=== PATIENT | male | born 1955 | race Caucasian/White ===

== ENCOUNTER 2017-10-11 19:44 | Emergency (ER) | payer OTHER ==
[2017-10-11] MEDS ORDERED: Albuterol/Ipratropium 3.0-0.5 MG/3 ML Neb Soln NEB ONE (19:57)
--- NOTE | 2017-10-11 20:08 | EDM.PDOC ---
ED HPI GENERAL MEDICAL PROBLEM - General Stated Complaint: SICK/COLD Time Seen by Provider: 10/11/17 20:00 Source of Information: Reports: Patient History Limitations: Reports: No Limitations - History of Present Illness INITIAL COMMENTS - FREE TEXT/NARRATIVE: History of present illness: 62-year-old male presenting with complaints of chest cold. Patient indicates that when he lays back that he feels that his lungs filled with fluid and is afraid he might have a pneumonia and would like to be evaluated and treated. Patient denies history of pneumonia denies history of COPD. Review of systems: As per history of present illness and below otherwise all systems reviewed and negative. Past medical history: As per history of present illness and as reviewed below otherwise noncontributory. Surgical history: As per history of present illness and as reviewed below otherwise noncontributory. Social history: No reported history of drug or alcohol abuse. Family history: As per history of present illness and as reviewed below otherwise noncontributory. Physical exam: HEENT: Atraumatic, normocephalic, pupils reactive, negative for conjunctival pallor or scleral icterus, mucous membranes moist with oral pharyngeal erythema without white patchy exudate neck supple, nontender, trachea midline. Lungs: Poor air movement with minimal diaphragmatic excursion noted shallow nonproductive cough, chest nontender. Heart: S1S2, regular, negative for clicks, rubs, or JVD. Abdomen: Soft, nondistended, nontender. Negative for masses or hepatosplenomegaly. Negative for costovertebral tenderness. Pelvis: Stable nontender. Genitourinary: Deferred. Rectal: Deferred. Extremities: Atraumatic, negative for cords or calf pain. Neurovascular unremarkable. Neuro: Awake, alert, oriented. Cranial nerves II through XII unremarkable. Cerebellum unremarkable. Motor and sensory unremarkable throughout. Exam nonfocal. Diagnostics: [Influenza AB, chest x-ray] Therapeutics: [Duo neb] Impression: [#1 pharyngitis #2 cough] Plan: [Antibodies, steroids, inhaler, cough syrup] Definitive disposition and diagnosis as appropriate pending reevaluation and review of above. Generalized Pain Score (Numeric/FACES): 7 - Related Data Allergies Allergy/AdvReac Type Severity Reaction Status Date / Time No Known Allergies Allergy Verified 10/11/17 20:31 Home Meds: Home Meds Albuterol Sulfate [Proair Hfa] 2 puff IH Q6HR #1 hfa.aer.ad 10/11/17 [Rx] Amoxicillin [IMW: Amoxicillin] 500 mg PO .THREE TIMES DAILY #30 cap 10/11/17 [Rx ] Inhaler, Assist Devices [Space Chamber Plus] 1 each ASDIRECTED #1 spacer [Rx] Rosuvastatin [Crestor] 10 mg PO ACBREAKFAST 10/11/17 [History] methylPREDNISolone [Medrol] 4 mg PO DAILY #21 tab.ds.pk 10/11/17 [Rx] ED ROS GENERAL - Review of Systems Review Of Systems: See Below (See history of present illness) ED EXAM, GENERAL - Physical Exam Exam: See Below (History of present illness) Course - Vital Signs Last Recorded V/S: Last Vital Signs Temp 38.3 C H 10/11/17 20:33 Pulse 109 H 10/11/17 20:33 Resp 20 10/11/17 20:33 BP 149/78 H 10/11/17 20:33 Pulse Ox 94 L 10/11/17 20:33 - Orders/Labs/Meds Orders: Active Orders 24 hr Category Date Time Status RT Aerosol Therapy [RC] ASDIRECTED Care 10/11/17 19:57 Active CXR [Chest 2V] [CR] Stat Exams 10/11/17 19:56 Taken Meds: Medications Discontinued Medications Generic Name Dose Route Start Last Admin Trade Name Freq PRN Reason Stop Dose Admin Albuterol/Ipratropium 3 ml 10/11/17 19:57 10/11/17 20:19 Duoneb 3.0-0.5 Mg/3 Ml NEB 10/11/17 19:58 3 ml ONETIME ONE Administration Departure - Departure Time of Disposition: 21:32 Disposition: Home, Self-Care 01 Condition: Good Clinical Impression: Cough, Pharyngitis - Discharge Information Prescriptions: Albuterol Sulfate [Proair Hfa] 2 puff IH Q6HR #1 hfa.aer.ad Amoxicillin [IMW: Amoxicillin] 500 mg PO .THREE TIMES DAILY #30 cap Inhaler, Assist Devices [Space Chamber Plus] 1 each ASDIRECTED #1 spacer methylPREDNISolone [Medrol] 4 mg PO DAILY #21 tab.ds.pk Referrals: Richie Chavez MD [Primary Care Provider] - Additional Instructions: The following information is given to patients seen in the emergency department who are being discharged to home. This information is to outline your options for follow-up care. We provide all patients seen in our emergency department with a follow-up referral. The need for follow-up, as well as the timing and circumstances, are variable depending upon the specifics of your emergency department visit. If you don't have a primary care physician on staff, we will provide you with a referral. We always advise you to contact your personal physician following an emergency department visit to inform them of the circumstance of the visit and for follow-up with them and/or the need for any referrals to a consulting specialist. The emergency department will also refer you to a specialist when appropriate. This referral assures that you have the opportunity for follow-up care with a specialist. All of these measure are taken in an effort to provide you with optimal care, which includes your follow-up. Under all circumstances we always encourage you to contact your private physician who remains a resource for coordinating your care. When calling for follow-up care, please make the office aware that this follow-up is from your recent emergency room visit. If for any reason you are refused follow-up, please contact the [facility] Emergency Department at and asked to speak to the emergency department charge nurse. Take medication as directed Follow-up with primary care provider in 3-5 days Return to ED as needed as discussed - My Orders Last 24 Hours: My Active Orders 10/11/17 19:56 CXR [Chest 2V] [CR] Stat 10/11/17 19:57 RT Aerosol Therapy [RC] ASDIRECTED - Assessment/Plan Last 24 Hours: My Active Orders 10/11/17 19:56 CXR [Chest 2V] [CR] Stat 10/11/17 19:57 RT Aerosol Therapy [RC] ASDIRECTED
--- NOTE | 2017-10-14 18:53 | CR ---
EXAM DATE: 10/11/17 PATIENT'S AGE: 62 Patient: [facility] Facility: [place], [place] Site . Site : [id number] Study: XRay Chest [id number] 9:17:34 PM Ordering Physician: Doctor Kilgore Final Report: INDICATION: Cough. Technique: PA and lateral chest x-ray. Findings: Probable hiatal hernia of moderate size. Heart size upper limits of normal. Mediastinum mildly prominent. Mild opacity in the right lung base likely related to atelectasis. Increased opacity in the left lung base medially may be related to the lateral aspect of the hiatal hernia. Chest otherwise unremarkable. Dictated by Gamal Escobedo MD @ Oct 11 2017 9:39PM (Electronic Signature) Report Signed by Proxy. NIRMAL
== END 2017-10-11 21:52 | disposition home or self-care (01) ==
LOC: MW.ED 19:44
DX: J02.9 Acute pharyngitis, unspecified (principal); Z79.899 Other long term (current) drug therapy
CPT/HCPCS: 71020; 71020-26; 87804; 94640; 99283; 99284

== ENCOUNTER 2018-02-17 09:49 | Day surgery (SDC) | payer BC ==
[~2018-02-17 09:49] MED LIST: Lactated Ringers 1,000 ML IV SCH; Sodium Chloride 0.9% 10 ML Syringe FLUSH PRN; Sodium Chloride 0.9% 2.5 ML Syringe FLUSH PRN
[2018-02-17] MEDS ORDERED: Lidocaine 2% 5 ML SDV ONE (09:59)
[2018-02-17] MEDS ORDERED: fentaNYL 100 MCG/2 ML SDV ONE (09:59)
[2018-02-17] MEDS ORDERED: Propofol 200 MG/20 ML SDV ONE (09:59)
--- NOTE | 2018-02-17 10:47 | PCM.PREANE ---
Preanesthetic Assessment - Anesthesia/Transfusion/Family Hx Anesthesia History: Prior Anesthesia Without Reaction Family History of Anesthesia Reaction: No Transfusion History: No Prior Transfusion(s) Intubation History: Unknown - Review of Systems General: No Symptoms Pulmonary: No Symptoms Cardiovascular: No Symptoms Gastrointestinal: No Symptoms, Other (hemoccult positive) Neurological: No Symptoms Other: Reports: None - Physical Assessment Height: 1.8 m Weight: 97.522 kg ASA Class: 2 Mental Status: Alert & Oriented x3 Airway Class: Mallampati = 2 Dentition: Reports: Normal Dentition, [place](s) (x8 upper) Thyro-Mental Finger Breadths: 3 Mouth Opening Finger Breadths: 3 ROM/Head Extension: Full Lungs: Clear to Auscultation, Normal Respiratory Effort Cardiovascular: Regular Rate, Regular Rhythm - Allergies Allergies/Adverse Reactions: Allergies Allergy/AdvReac Type Severity Reaction Status Date / Time No Known Allergies Allergy Verified 02/12/18 09:06 - Blood Blood Available: No - Anesthesia Plan Pre-Op Medication Ordered: None - Acknowledgements Anesthesia Type Planned: MAC Pt an Appropriate Candidate for the Planned Anesthesia: Yes Alternatives and Risks of Anesthesia Discussed w Pt/Guardian: Yes Pt/Guardian Understands and Agrees with Anesthesia Plan: Yes PreAnesthesia Questionnaire Cardiovascular History: Reports: High Cholesterol, Hypertension Gastrointestinal History: Reports: None, Other (See Below) (h/o GERD) Genitourinary History: Reports: BPH Endocrine/Metabolic History: Reports: Obesity/BMI 30+ - Past Surgical History Head Surgeries/Procedures: Reports: None GI Surgical History: Reports: Colonoscopy (10 years ago- normal) Male Surgical History: Reports: Vasectomy - SUBSTANCE USE Smoking Status *Q: Former Smoker Second Hand Smoke Exposure: No Recreational Drug Use History: No - HOME MEDS Home Medications: Home Meds Ramipril [Altace] 10 mg PO DAILY 10/11/17 [History] Rosuvastatin [Crestor] 20 mg PO ACBREAKFAST 10/11/17 [History] - CURRENT (IN HOUSE) MEDS Current Meds: Current Medications Lactated Ringer's (Ringers, Lactated) 1,000 mls @ 125 mls/hr IV ASDIRECTED ZACHARY Sodium Chloride (Saline Flush) 10 ml FLUSH ASDIRECTED PRN PRN Reason: Keep Vein Open Sodium Chloride (Saline Flush) 2.5 ml FLUSH ASDIRECTED PRN PRN Reason: Keep Vein Open Sodium Chloride (Saline Flush) 10 ml FLUSH ASDIRECTED PRN PRN Reason: Keep Vein Open Sodium Chloride (Saline Flush) 2.5 ml FLUSH ASDIRECTED PRN PRN Reason: Keep Vein Open Discontinued Medications Fentanyl (Sublimaze) Confirm Administered Dose 100 mcg .ROUTE .STK-MED ONE Stop: 02/17/18 10:00 Lidocaine (Xylocaine-Mpf 2%) Confirm Administered Dose 5 ml .ROUTE .STK-MED ONE Stop: 02/17/18 10:00 Propofol (Diprivan 20 Ml) Confirm Administered Dose 400 mg .ROUTE .STK-MED ONE Stop: 02/17/18 10:00
--- NOTE | 2018-02-17 11:30 | PCM.OPNOTE ---
- General Post-Op/Procedure Note Date of Surgery/Procedure: 02/17/18 Operative Procedure(s): Diagnostic colonoscopy Findings: Sigmoid colon polyps x 2 Pre Op Diagnosis: Positive fecal occult blood test Post-Op Diagnosis: Sigmoid colon polyps x 2 Anesthesia Technique: MAC Primary Surgeon: Iliana Golden Condition: Good
--- NOTE | 2018-02-17 11:37 | PCM.POSTAN ---
POST ANESTHESIA ASSESSMENT - MENTAL STATUS Mental Status: Alert, Oriented - RESPIRATORY Respiratory Status: Respiratory Rate WNL - CARDIOVASCULAR CV Status: Pulse Rate WNL, Blood Pressure Stable - GASTROINTESTINAL GI Status: No Symptoms - PAIN Pain Score: 0 - POST OP HYDRATION Hydration Status: Adequate & Stable - OBSERVATIONS Free Text/Narrative:: no anesthesia problems
--- NOTE | 2018-02-17 12:01 | OR ---
SURGEON: ASA HICKMAN MD DATE OF PROCEDURE: 02/17/2018 PREOPERATIVE DIAGNOSIS: Positive fecal occult blood test. POSTOPERATIVE DIAGNOSIS: Sigmoid colon polyps x2. PROCEDURE PERFORMED: Diagnostic colonoscopy. ANESTHESIA: MAC. INSTRUMENT USED: Olympus colonoscope. EXTENT OF EXAM: To the cecum. PREPARATION: Good. LIMITATIONS: None. INDICATION FOR EXAMINATION: The patient is a 62-year-old male who recently had a screening fecal occult blood test that came back positive. A decision was made to proceed with diagnostic colonoscopy. We discussed the procedure, expected perioperative course, and risks including bleeding, infection, damage to surrounding structures, including perforation. The patient verbalized understanding and wishes to proceed. PROCEDURE IN DETAIL: The patient was brought to the endoscopy suite and placed in a left lateral decubitus position. A time-out was completed verifying the patient's name, age, date of , allergies, and procedure to be performed. Monitored anesthesia care was induced and continuous oxygen was provided via nasal cannula throughout the procedure. After adequate sedation was achieved, a digital rectal exam was performed. This exam was significant for some mild hemorrhoidal disease. A well-lubricated colonoscope was then inserted into the rectum and advanced under direct visualization to the level of cecum. The cecum was identified by both visual and anatomic landmarks. Photograph was taken of the cecal cap, however, I was unable to retroflex the scope within the cecum safely. The scope was then fully withdrawn while examining the color, texture, anatomy, and integrity of the mucosa from the cecum to the anal canal. The ileocecal valve appeared normal with no evidence of any inflammation. In the proximal sigmoid colon, a 1 to 2 mm sessile polyp was noted. This was removed using a cold biopsy forceps. At 60 cm, a 4 to 5 mm pedunculated polyp was noted. This was removed in piecemeal fashion using a cold biopsy forceps. Given its location, the area was then marked with ink. This ink was injected submucosally to allow for identification of the site of resection in the future. At the end of this procedure, the area appeared hemostatic. The remainder of the colonic mucosa appeared normal. The scope was brought into the rectum and retroflexed to allow visualization of the anal canal opening. This appeared normal and a photograph was taken. The scope was then straightened out and fully withdrawn. The cecum to anus time was greater than 15 minutes. The patient tolerated the procedure well and taken back in stable condition. ENDOSCOPIC DIAGNOSIS: Sigmoid colon polyps x2. RECOMMENDATIONS: Follow up in clinic in 2 weeks. ELIO BERMAN /[id number]
== END 2018-02-17 11:51 | disposition home or self-care (01) ==
LOC: MW.SDS 09:49
PROVIDERS: ATTEND Surgery
DX: D12.5 Benign neoplasm of sigmoid colon (principal); K63.5 Polyp of colon; I10 Essential (primary) hypertension; E78.00 Pure hypercholesterolemia, unspecified; K40.90 Unilateral inguinal hernia, without obstruction or gangrene, not specified as recurrent; M21.40 Flat foot [pes planus] (acquired), unspecified foot; N40.0 Benign prostatic hyperplasia without lower urinary tract symptoms; E66.9 Obesity, unspecified; Z68.29 Body mass index [BMI] 29.0-29.9, adult; Z79.899 Other long term (current) drug therapy; Z98.52 Vasectomy status; Z98.890 Other specified postprocedural states; Z87.891 Personal history of nicotine dependence
CPT/HCPCS: 45380; 45381; 88305; J3010; J2704

== ENCOUNTER 2023-08-07 06:58 | Day surgery (SDC) | payer MEDICARE, BC ==
[~2023-08-07 06:58] MED LIST changes: +Sodium Chloride 0.9% 20 ML SDV IV PRN
[2023-08-07] MEDS ORDERED: Lidocaine 2% 5 ML SDV ONE (08:52)
[2023-08-07] MEDS ORDERED: Propofol 200 MG/20 ML SDV ONE ×2 (08:52→09:19)
== END 2023-08-07 10:30 | disposition home or self-care (01) ==
LOC: MW.SDS 06:58
PROVIDERS: ATTEND Surgery
DX: D50.9 Iron deficiency anemia, unspecified (principal); K29.50 Unspecified chronic gastritis without bleeding; K62.1 Rectal polyp; K63.5 Polyp of colon; K62.89 Other specified diseases of anus and rectum; N40.0 Benign prostatic hyperplasia without lower urinary tract symptoms; I10 Essential (primary) hypertension; E78.00 Pure hypercholesterolemia, unspecified; E66.9 Obesity, unspecified; Z79.899 Other long term (current) drug therapy; Z87.891 Personal history of nicotine dependence; Z68.30 Body mass index [BMI] 30.0-30.9, adult
CPT/HCPCS: 43239; 45380; J2704; J7120; 00813; J3490